=== PATIENT | male | born 1990 | race Caucasian/White ===

== ENCOUNTER 2023-01-24 03:19 | Emergency (ER) | payer SELFPAY ==
[~2023-01-24] VITALS: Ht 175.3 cm; Wt 73.0 kg
[2023-01-24 03:22] VITALS: TEMP 98.7; O2SAT 100
[2023-01-24 04:00] VITALS: BP 152/108; PULSE 100; RESP 16
[2023-01-24] MEDS ORDERED: KETOROLAC 60MG/2ML VIAL IM ONE (04:00)
[2023-01-24] MEDS ORDERED: IBUP-2029 MT (05:03)
[2023-01-24] MEDS ORDERED: CYCL10TA21 MT (05:03)
== END 2023-01-24 05:57 | disposition home or self-care (01) ==
LOC: ER 03:30
DX: M54.50 Low back pain, unspecified (principal); F17.200 Nicotine dependence, unspecified, uncomplicated
CPT/HCPCS: 99283; 72100; 96372; J1885